=== PATIENT | female | born 1990 | race African-American/Black ===

== ENCOUNTER 2025-04-05 09:37 | Emergency (ER) | payer OTHER, SELFPAY ==
--- OUTSIDE RECORDS SUMMARY | 2024-06-23 10:30 | XMS_ITS ---
Author Organization [facility] Address [address] [place] [phone] Care Team Providers Care Centerless Grinder Set Up Operator Name Role Phone Jolanta Cornell Unavailable [phone] REASON FOR VISIT SOLDERER ASSEMBLER- Wellness Social History Sex Assigned At : Social History Observation Description Sex Assigned At Female Encounters Encounter Location Date Provider Diagnosis [address] [address] 06/23/2024 Jolanta Cornell Plan Of Treatment No Information Progress Notes * Vivian STEVEDOB: [birth year] (34 yo F)Acc No.[id number]:06/23/2024 Progress Notes Patient: Vivian BAUMANN Provider: John Cornell MD :1990 A ge:33 Y S ex:Female Date:06/23/2024 Address:[address] [place], [place] [id number] Subjective: * Chief Complaints: * 1 . SOLDERER ASSEMBLER- Wellness. * Medical History: Objective: * Vitals: Assessment: Plan: * Treatment: Care Plan: * Problems: * Billing Information: * Visit Code: * Procedure Codes: * Electronic signature of Ricardo Cornell MD on 04/05/2025 at 09:49 AM EDT Sign off status: Pending * Provider: John Cornell MD Date: 1 Generated for Darlene masters/Heber/eTransmitting on: 0 04/05/2025 09:49 AM EDT
[2025-04-05 09:42] VITALS: BP 136/83; PULSE 89; TEMP 37.1; O2SAT 100; BMI 20.8
--- OUTSIDE RECORDS SUMMARY | 2025-04-05 09:49 | XMS_ITS | Patient Health Record ---
Author Organization [facility] Address [address] [place], [place] [id number] Care Team Providers Care Key Operator Name Role Phone Jolanta Cornell Unavailable [phone] Reason For Referral No Information Social History Sex Assigned At : Social History Observation Description Sex Assigned At Female Plan Of Treatment No Information Insurance Providers Payer Name Payer Address Payer Phone Subscriber Number Group Number Insured Name Patient Relationship to Insured Coverage Start Date Coverage End Date [employer] [address] [facility] [phone] [id number] Vivian Dunn Self - patient is the insured
--- OUTSIDE RECORDS SUMMARY | 2025-04-05 09:49 | XMS_ITS | Clinical Summary ---
Author Organization [facility] Address [id number] [place] [address] Care Team Providers Care Geophysical Data Technician Name Role Phone No Pcp, No Pcp Primary Care Provider Unavailabl e Allergies No known active allergies Medications No known medications Social History Tobacco Use Types Packs/Day Years Used Date Smoking Tobacco: Never Smokeless Tobacco: Never Tobacco Cessation:Counseling Given: Not Answered Alcohol Use Standard Drinks/Week Comments Never 0 (1 standard drink = 0.6 oz pur e alcohol) Hunger Screening Answer Date Recorded Within the past 12 months we worried whether our food would run out before we got money to buy more. Never True 09/24/2024 Within the past 12 months th e food we bought just didn't last and we didn't have money to get more. Never True 09/24/2024 Comments No Sex and Gender Information Value Date Recorded Sex Assigned at Not on file Legal Sex Female 10:30 AM EST Gender Identity Not on file Sexual Orientation Not on file Last Filed Vital Signs Vital Sign Reading Time Taken Comments Blood Pressure 122/83 09/24/2024 3:00 PM EST Pulse 70 09/24/2024 2:45 PM EST Temperature 36.8 C (98.3 F) 09/24/2024 11:47 AM EST Respiratory Rate 17 09/24/2024 2:45 PM EST Oxygen Saturation 100% 09/24/2024 3:00 PM EST Inhaled Oxygen Concentration - - Weight 58.7 kg (129 lb 6.4 oz) 09/24/2024 11:47 AM EST Height 165 cm (5' 4.96 ) 09/24/2024 11:47 AM EST Body Mass Index 21.56 09/24/2024 11:47 AM EST Plan of Treatment Health Maintenance Due Date Last Done Comments Depression Screening 2000 DTaP,Tdap and Td Vaccines (1 - Tdap) 12/22/2007 Pap Smear 2009 Influenza Vaccine 05/22/2025 Adult BMI Screening 09/24/2025 09/24/2024 Tobacco Screening 09/24/2025 09/24/2024 Medical Devices Not on file Insurance [employer] Care Teams Geophysical Data Technician Relationship Specialty Start Date End Date No Pcp, [place] [address] PCP - General Family Medicine 09/24/24
--- NOTE | 2025-04-05 09:58 | ED_ITS ---
HPI HPI - General Adult General Stated complaint: LOWER EXTERMITY PAIN Time Seen by Provider: 04/05/25 09:38 History of Present Illness HPI narrative: 34-year-old female presents for rash. It is on her bilateral lower legs and it is pruritic. She has not been around anybody who has had this and has not been in brush. She has not taken any medication for it and she has had it for a few days. She does not speak Prydeinig but her accompanies and helps translate along with electronic pipe liner. Related Data Previous Rx's ?Medication ?Instructions ?Recorded prednisone 10 mg tablet See Rx Instructions .Route 0 04/05/25 .COMPLEX #30 tabs triamcinolone acetonide 0.1 % 1 applic topical BID #80 grams 04/05/25 topical cream Allergies Allergy/AdvReac Type Severity Reaction Status Date / Time No Known Drug Allergies Allergy Verified 04/05/25 09:59 Review of Systems ROS Narrative A ten point review of systems is negative except as noted above. Exam Narrative Exam Narrative: Nurses note and vital signs reviewed and patient is not hypoxic. General: The patient appears well and in no apparent distress. Patient is res ting comfortably on cart. Skin: Warm, dry, no pallor noted. There is bilateral lower extremity rash on the lower half of the lower leg. There is no open area or drainage. It is slightly raised. No pustules or blisters present. Head: Normocephalic, atraumatic Eye: Normal conjunctiva, no drainage Ears, Nose, Mouth, and Throat: oral mucosa is moist. Nares patent. Cardiovascular: Regular Rate and Rhythm Respiratory: Patient is in no distress, no accessory muscle use, lungs are clear to auscultation, no wheezing, rales or rhonchi Back: non-tender GI: Soft and nontender Musculoskeletal: The patient has no evidence of calf tenderness, no pitting edema, symmetrical pulses noted bilaterally Neurological: Awake and alert Psychiatric: Cooperative Medical Decision Making MDM Narrative Medical decision making narrative: The cause of the rash is uncertain but has the appearance of a contact dermatitis. She is prescribed prednisone and Kenalog cream. Treatment diagnosis and follow-up were discussed with the patient and her . Differential Diagnosis Differential Diagnosis: Contact dermatitis, nonspecific rash Discharge Plan Discharge Clinical Impression: Rash Patient Disposition: Home, Self-Care Time of Disposition Decision: 09:55 Condition: Good Mode of Transportation: Private Vehicle Prescriptions / Home Meds: New prednisone 10 mg tablet See Rx Instructions .ROUTE .COMPLEX Qty: 30 0RF Rx Instructions: 4 by mouth daily for three days then 3 by mouth daily for three days then 2 by mouth daily for three days then 1 by mouth daily for three days triamcinolone acetonide 0.1 % cream 1 applic topical BID Qty: 80 0RF Print Language: Prydeinig Instructions: Acute Rash (ED) Additional Instructions: Gsks-zzv-zrtkjte Benadryl for itching Referrals: Physician,Non-Staff, MD [Primary Care Provider] - 1 week
== END 2025-04-05 10:10 | disposition home or self-care (01) ==
PROVIDERS: Emergency Provider Emergency Medicine
DX: R21 Rash and other nonspecific skin eruption (principal)
CPT/HCPCS: 99283

== ENCOUNTER 2025-08-28 12:32 | Emergency (ER) | payer OTHER, SELFPAY ==
[2025-08-28 12:45] VITALS: BP 138/95; PULSE 101; TEMP 37.2; O2SAT 100
[2025-08-28] MEDS: DIPHENHYDRAMINE HCL 25 MG CAPSULE 50 MG PO (13:11)
[2025-08-28] MEDS: PREDNISONE 20 MG TABLET 40 MG PO (13:11)
--- NOTE | 2025-08-28 13:26 | ED.GENADUL1 ---
HPI HPI - General Adult General Chief complaint: Skin/Abscess/Foreign Body Stated complaint: SKIN IRRITATION Time Seen by Provider: 08/28/25 12:50 Source: patient Mode of arrival: walk-in Limitations: language barrier Limitations comment: Irish creole History of Present Illness HPI narrative: Patient is a 34-year-old female that presents to the emergency department with complaints of itching and ynpn-hfj-czekgcx sensation, mostly on her back that started this morning. Patient speaks Irish Creole and director global medical affairs is used through the iPad. She denies any medication change, jewelry, laundry detergent changes. She states the only new food that she has tried is a spicy sauce that will sometimes give her GI upset. Related Data Previous Rx's ?Medication ?Instructions ?Recorded prednisone 10 mg tablet See Rx Instructions .Route 04/05/25 .COMPLEX #30 tabs triamcinolone acetonide 0.1 % 1 applic topical BID #80 grams 04/05/25 topical cream cetirizine 10 mg tablet 10 mg PO DAILY #30 tabs 08/28/25 Allergies Allergy/AdvReac Type Severity Reaction Status Date / Time No Known Drug Allergies Allergy Verified 08/28/25 12:45 Opioid HPI Opioid Management Most Recent Opioid Data: Last Pain Scale 7 Today, 12:45 Review of Systems ROS Status of ROS 10 or more systems reviewed and unremarkable except as noted in history and below PFSH PFSH Social History Little interest or pleasure in doing things: not at all Feeling down, depressed, or hopeless: not at all Exam Narrative Exam Narrative: General: No distress, age-appropriate Skin: Warm, dry, no pallor. No rash. Head: Normocephalic, atraumatic. Neck: Supple, non-tender. Eye: Pupils are equal, round and EOMI. No scleral icterus. Ears, Nose, Mouth, and Throat: No nasal mucosal hypertrophy. Oral mucosa is moist, no posterior oropharynx erythema, uvula is mid-line Cardiovascular: Regular Rate and Rhythm without murmur, gallop or rub. Respiratory: No accessory muscle use or respiratory distress. Lungs clear to auscultation, no wheezing, rhales, or rhonchi. Musculoskeletal: Full ROM of all extremities, no calf or popliteal tenderness Neurological: A&O x4. No cranial nerve dysfunction observed. No truncal ataxia. Moves all extremities. Sensation intact. Psychiatric: Cooperative and interactive. Normal mood and affect. Constitutional Vital Signs, click to edit/add: Last Vital Signs Temp 99.0 F 08/28/25 12:45 Pulse 101 H 08/28/25 12:45 Resp 18 08/28/25 12:45 BP 138/95 H 08/28/25 12:45 Pulse Ox 100 08/28/25 12:45 Documenting provider has reviewed patient's vital signs: yes Course Vital Signs Vital signs: Vital Signs Temperature 99.0 F 08/28/25 12:45 Pulse Rate 101 H 08/28/25 12:45 Respiratory Rate 18 08/28/25 12:45 Blood Pressure 138/95 H 08/28/25 12:45 Pulse Oximetry 100 08/28/25 12:45 Temperature 99.0 F 08/28/25 12:45 Pulse Rate 101 H 08/28/25 12:45 Respiratory Rate 18 08/28/25 12:45 Blood Pressure 138/95 H 08/28/25 12:45 Pulse Oximetry 100 08/28/25 12:45 Medical Decision Making [facility] Narrative Medical decision making narrative: 34-year-old female presented with acute onset generalized pruritus and inzp-jyy-itneeev sensation beginning this morning, without associated rash, swelling, respiratory symptoms, or identifiable new medication, environmental, or contact exposures. Exam was reassuring with no evidence of urticaria, angioedema, airway compromise, or rash. Given the symptoms, a mild early allergic-type reaction or nonspecific histamine-mediated process was considered most likely; no findings suggested anaphylaxis, infection, neurologic deficit, or systemic illness. In the ED the patient was treated with diphenhydramine 50 mg and prednisone 40 mg with improvement in symptoms. She remained hemodynamically stable and comfortable on reassessment. She was discharged with cetirizine 10 mg daily, instructed to avoid suspected triggers, and provided strict return precautions for any development of rash, swelling, breathing difficulty, or worsening symptoms. Work noted was given for today. Follow-up with primary care was advised. Differential Diagnosis Differential Diagnosis: Dermatologic/allergic, neurologic, metabolic Discharge Plan Discharge Chief Complaint: Skin/Abscess/Foreign Body Clinical Impression: Itching Patient Disposition: Home, Self-Care Time of Disposition Decision: 13:34 Condition: Good Mode of Transportation: Private Vehicle Prescriptions / Home Meds: New cetirizine 10 mg tablet 10 mg PO DAILY Qty: 30 0RF No Action prednisone 10 mg tablet See Rx Instructions .ROUTE .COMPLEX Qty: 30 0RF Rx Instructions: 4 by mouth daily for three days then 3 by mouth daily for three days then 2 by mouth daily for three days then 1 by mouth daily for three days triamcinolone acetonide 0.1 % cream 1 applic topical BID Qty: 80 0RF Print Language: Georgian Instructions: Itchy Skin (ED) Referrals: Physician,Non-Staff, MD [Primary Care Provider] - 1 week Discharge Date/Time: 08/28/25 13:41
== END 2025-08-28 13:41 | disposition home or self-care (01) ==
PROVIDERS: Emergency Provider Emergency Medicine
DX: L29.9 Pruritus, unspecified (principal)
CPT/HCPCS: 99283; J7512